=== PATIENT | female | born 1985 | race Two or more races ===

== ENCOUNTER 2017-05-18 14:35 | Emergency (ER) | payer SELFPAY ==
[~2017-05-18] VITALS: Ht 165.1 cm; Wt 72.6 kg
[2017-05-18] MEDS ORDERED: IV NORMAL SALINE 1000 ML BAG IV ONE (14:45)
[2017-05-18] MEDS ORDERED: ONDANSETRON IV *ER 4 MG/2 ML VIAL IV ONE (15:00)
--- NOTE | 2017-05-18 15:00 | NUR ---
BIB [facility] FOR ALTERED POSSIBLY INTOXICATED BEHAVIOR. PT IS SLEEPY BUT AROUSES TO TOUCH. PLACED ON MONITOR. IV PLACED. SIDERAILS UP. SAFETY PRECAUTIONS TAKEN.
[2017-05-18] MEDS ORDERED: ONDANSETRON 4 MG/2 ML VIAL ONE (15:17)
[2017-05-18 15:22] LABS: CARBON DIOXIDE 21 mmol/L (21-32); CHLORIDE 107 mmol/L (98-107); CREATININE 0.8 mg/dL (0.6-1.3); GLUCOSE 84 mg/dL (74-106); UREA NITROGEN, BLOOD 8 mg/dL (7-18)
[2017-05-18 15:23] LABS: BASOPHILS # (AUTO) 0.1 K/uL (0.0-8.0); EOSINOPHILS % (AUTO) 0.7 % (0.0-7.0); HEMATOCRIT 37.9 % (37-47); HEMOGLOBIN 12.2 G/DL (12.0-16.0); LYMPHOCYTES # (AUTO) 1.8 K/UL (0.8-4.8); MEAN CORPUSCULAR HGB CONC 32 g/dL (32.0-37.0); MEAN CORPUSCULAR VOLUME 87.3 FL (81.0-99.0); MONOCYTES # (AUTO) 0.7 K/UL (0.1-1.30); MONOCYTES % (AUTO) 11.1 % (0.0-11.0); NEUTROPHILS # (AUTO) 3.3 K/UL (1.8-8.9); NEUTROPHILS % (AUTO) 56.2 % (38.5-71.5); PLATELET COUNT (AUTO) 258 K/UL (150-450); RED BLOOD CELL COUNT(AUTO) 4.34 MIL/UL (4.2-5.4); WHITE BLOOD COUNT (AUTO) 5.9 K/UL (4.0-11.2)
[2017-05-18 15:27] LABS: ALANINE AMINOTRANSFERASE 25 U/L (14-59); ALKALINE PHOSPHATASE 54 U/L (50-136); ASPARTATE AMINOTRANSFERASE 28 U/L (15-37); BILIRUBIN,DIRECT 0.1 mg/dL (0.0-0.2); BILIRUBIN,TOTAL 0.2 mg/dL (0.2-1.0); TOTAL PROTEIN, SERUM 7.3 g/dL (6.4-8.2)
[2017-05-18 15:29] LABS: ACETAMINOPHEN < 2.0 ug/mL (10-30)
[2017-05-18 15:37] LABS: ETHANOL 440 MG/DL (0-0)
[2017-05-18] MEDS ORDERED: HALOPERIDOL LACTATE 5 MG/1 ML VIAL IV ONE (16:00)
[2017-05-18] MEDS ORDERED: HALOPERIDOL LACTATE 5 MG/1 ML VIAL IM ONE (16:00)
[2017-05-18] MEDS ORDERED: HALOPERIDOL LACTATE 5 MG/1 ML VIAL ONE (16:09)
--- NOTE | 2017-05-18 16:09 | NUR ---
PATIENT IS ATTEMPTING TO GET OUT OF BED WHI CH POSES A SAFETY RISK SINCE SHE IS NOT FULLY AWAKE AND ALERT. MD AWARE. MEDS GIVEN NOTED. PATIENT HAD PULLED OUT HER IV A FEW MINUTES AGO. CATHETER TIP INTACT. PRESSURE APPLIED ,DRESSING APPLIED.
--- NOTE | 2017-05-18 17:05 | NUR ---
PATIENT IS SLEEPY BUT EASILY AROUSABLE.
--- NOTE | 2017-05-18 18:04 | NUR ---
PATIENT WOKE UP AND ASKED IF SHE CAN GO HOME. STATES SHE LIVES ON [address] IN [place]. SHE THEN LAID BACK DOWN AND FELL ASLEEP.
--- NOTE | 2017-05-18 20:10 | NUR ---
PATIENT AWAKE,AMBUALTING WITH STEADY GAIT. SPEAKING WITH CLEAR SPEECH.A/OX3. REQUESTING TO BE D/C'ED. DR RODRIGUEZ INTO EVAL PATIENT
--- NOTE | 2017-05-18 20:15 | NUR ---
PATIENT AMBULATED TO [facility] WITH STEADY GAIT. TOLERATED PO INTAKE
--- NOTE | 2017-05-18 20:30 | NUR ---
PATIENT WALKED OUT OF ER WITH STEADY GAIT. NO DISTRESS NOTED. REFUSED TO SIGN ACI PAPER. DR RODRIGUEZ AWARE
[2017-05-18 20:34] VITALS: BP 120/69
== END 2017-05-18 20:35 | disposition home or self-care (01) ==
LOC: ER 14:38
DX: F10.229 Alcohol dependence with intoxication, unspecified (principal)
CPT/HCPCS: 36415; 80307; 84443; 84703; 85025; 93005; A4663; G0480; G0480-TC; J1630; J2405

== ENCOUNTER 2017-05-18 21:28 | Emergency (ER) | payer SELFPAY ==
[~2017-05-18] VITALS: Ht 167.6 cm; Wt 62.6 kg
--- NOTE | 2017-05-18 22:00 | NUR ---
Pt biba for ALOC due to heavy etoh ingestion. Pt was recently discharged from this ER for same complaints within the last two hours. Pt unresponsive but withdraws from pain. Resp even and unlabored, airway patent and O2 sats maintaining > 95% on RA. Pt ST on monitor. Awaiting further eval.
--- NOTE | 2017-05-18 23:55 | NUR ---
Pt seen by Dr. Sharif. Labs drawn and sent, pt placed in restraints per Dr. Sharif's order. Pt intoxicated and unable to follow direction. Pt pulling at wires, removing gown and climbing out of bed. UA collected and sent. Pt repositioned for comfort, boyfriend at bedside.
--- NOTE | 2017-05-19 00:45 | NUR ---
Pt restless in bed. Restraints intact. Refer to restraint assessment charting. Pt NSR and ST on monitor. Boyfriend remains at bedside.
[2017-05-19 00:49] LABS: ETHANOL 362 MG/DL (0-0)
[2017-05-19 00:53] LABS: CARBON DIOXIDE 25 mmol/L (21-32); CHLORIDE 110 mmol/L (98-107); CREATININE 0.8 mg/dL (0.6-1.3); GLUCOSE 96 mg/dL (74-106); POTASSIUM 3.3 mmol/L (3.5-5.1); UREA NITROGEN, BLOOD 6 mg/dL (7-18)
[2017-05-19 00:56] LABS: ACETAMINOPHEN < 2.0 ug/mL (10-30)
[2017-05-19 01:19] LABS: *AMPHETAMINE, URINE NEGATIVE (NEGATIVE); *BARBITURATE, URINE NEGATIVE (NEGATIVE); *CANNABINOID, URINE NEGATIVE (NEGATIVE); *COCCAINE, URINE NEGATIVE (NEGATIVE); *OPIATE, URINE NEGATIVE (NEGATIVE); *PHENCYCLIDINE SCREEN,URINE NEGATIVE (NEGATIVE)
--- NOTE | 2017-05-19 02:00 | NUR ---
Pt repositioned for comfort in restraints. Refer to restraint assesment charting. Resp even and unlabored. No obvious signs of distress at this time.
[2017-05-19] MEDS ORDERED: POTASSIUM CHLORIDE 20 MEQ TAB.PRT.SR PO ONE (03:15)
[2017-05-19] MEDS ORDERED: POTASSIUM CHLORIDE 20 MEQ TAB.PRT.SR ONE (03:29)
--- NOTE | 2017-05-19 05:30 | NUR ---
Restraints removed. Pt answering simple questions and following basic comands. Boyfriend at bedside. Pt given water, no problems noted.
--- NOTE | 2017-05-19 06:40 | NUR ---
Pt stable for discharge per Dr. Sharif. Ayon removed, no problems noted. Pt and boyfriend given ACI. Both verbalized understanding of dc instructions. Pt ambulated out of er with steady gait and ride home.
[2017-05-19 07:42] VITALS: BP 105/58
== END 2017-05-19 06:40 | disposition home or self-care (01) ==
LOC: ER 21:28
DX: F10.121 Alcohol abuse with intoxication delirium (principal); R41.0 Disorientation, unspecified
CPT/HCPCS: 36415; 51702; 80048; 80307; 99284; A4663; C1758; G0480 ×2; G0481

== ENCOUNTER 2017-05-27 23:49 | Emergency (ER) | payer SELFPAY ==
[~2017-05-27] VITALS: Ht 157.5 cm; Wt 59.0 kg
--- NOTE | 2017-05-28 00:10 | NUR ---
Pt biba from the [employer] parking lot for intoxication. This will be pt's third visit to this ER for same complaint. Able to wake pt but pt refusing to answer any questions, rolls over facing away from staff. Pt placed on monitor. NSR. Resp even and unlabored. No obvious trauma noted to pt. Pt resting in position of comfort for self, awaiting further eval.
--- NOTE | 2017-05-28 00:55 | NUR ---
Pt woke up, unhooked herself from the monitor and ambulated to the br with a steady gait. Attempted to have pt lay back down on her gurney x 3, but she refused. Pt ambulated out of ER with a steady gait. Dr. Hess aware pt eloping from ER detaining pt not required at this time per Dr. Hess.
== END 2017-05-28 00:55 | disposition left against medical advice (07) ==
LOC: ER 23:50
DX: F10.129 Alcohol abuse with intoxication, unspecified (principal)
CPT/HCPCS: A4663

== ENCOUNTER 2017-08-07 20:19 | Emergency (ER) | payer SELFPAY ==
[~2017-08-07] VITALS: Ht 157.5 cm; Wt 59.0 kg
--- NOTE | 2017-08-07 20:33 | NUR ---
Pt biba for alcohol intoxication. Pt sitting up , requesting water. Pt questioned by [employer]. Pt now resting in position of comfort for self. Resp even and unlabored. No obvious signs of distress at this time.
--- NOTE | 2017-08-07 22:15 | NUR ---
pt resting in position of comfort for self with eyes closed, resp even and unlabored. No obvious signs of distress at this time.
--- NOTE | 2017-08-08 00:55 | NUR ---
Pt woke up, requesting water. Pt more alert. Pt stable for discharge per Dr. Brown. Pt given ACI. Pt verbalized understanding of dc instructions. Pt ambulated out of ER with steady gait.
[2017-08-08 00:57] VITALS: BP 116/57
== END 2017-08-08 00:58 | disposition home or self-care (01) ==
LOC: ER 20:24
DX: F10.129 Alcohol abuse with intoxication, unspecified (principal)
CPT/HCPCS: A4663